=== PATIENT | female | born 1950 | race Caucasian/White ===

== ENCOUNTER → 2021-12-31 | Outpatient (CLI) | payer OTHER | LOC: LAB 17:25 → LAB SHORT 17:25 | DX: R30.0 Dysuria (principal) | CPT/HCPCS: 87086 ==

== ENCOUNTER → 2022-09-08 | Outpatient (CLI) | payer OTHER | END | disposition home or self-care (01) | LOC: PLD 08:10 → LAB SHORT 08:10 | DX: L60.2 Onychogryphosis (principal); B35.1 Tinea unguium | CPT/HCPCS: 88305; 88312 ==

== ENCOUNTER 2025-03-01 09:14 | Day surgery (SDC) | payer OTHER ==
[~2025-03-01] VITALS: Ht 162.6 cm; Wt 83.9 kg
[2025-03-01] MEDS ORDERED: CeFAZolin Sodium 2,000 MG VIAL ONE (09:31)
[2025-03-01] MEDS ORDERED: LISI5 PO (09:36)
[2025-03-01] MEDS ORDERED: LEVOTHYROXINE100 M10 PO (09:37)
[2025-03-01] MEDS ORDERED: Ropinirole HCl4 MG (09:37)
[2025-03-01] MEDS ORDERED: CARBIDOPA-LEVO1 EAC9 (09:37)
[2025-03-01] MEDS ORDERED: ASPIR 8181 M1 PO (09:38)
[2025-03-01] MEDS ORDERED: FentaNYL Citrate 50 MCG/ML 2 ML Injection ONE (10:21)
[2025-03-01] MEDS ORDERED: Midazolam HCl 1MG / ML 2ML Vial ONE (10:22)
[2025-03-01] MEDS ORDERED: Bupivacaine 0.5% HCl 5 MG/ML 30MLVIAL INJ ONE (10:33)
[2025-03-01] MEDS ORDERED: Ondansetron HCl 2 MG / ML 2ML Vial ONE (10:55)
[2025-03-01] MEDS ORDERED: Metoclopramide HCl 5MG / ML 2ML Vial ONE (10:55)
[2025-03-01 11:08] VITALS: BP 134/70
--- NOTE | 2025-03-01 11:45 | NUR ---
03/01/25 1145 Malika Muir PT TOLERATING FLUIDS AND SNACKS WELL. PT UP TO CHAIR, HER IS AT BEDSIDE. PT EDUCATION PROVIDED. ALL QUESTIONS ANSWERED, CONCERNS ADDRESSED. PT STATED THAT SHE'S NOT PAINFUL NOR NAUSEOUS. PT HASN'T TAKEN PARKIN[facility]'S MEDICATIONS YET, SO WENT TO THE CAR TO GRAB THEM FOR HER.
== END 2025-03-01 12:04 | disposition home or self-care (01) ==
LOC: ORSCSDS 09:14
PROVIDERS: Podiatrist
PROC: 0SNQ0ZZ Release Left Toe Phalangeal Joint, Open Approach (ICD-10-PCS; principal; 2025-03-01 10:30)
PROC: 0L8W0ZZ Division of Left Foot Tendon, Open Approach (ICD-10-PCS; principal; 2025-03-01 10:30)
DX: M20.42 Other hammer toe(s) (acquired), left foot (principal); L97.522 Non-pressure chronic ulcer of other part of left foot with fat layer exposed; M79.672 Pain in left foot; L84 Corns and callosities; G20.A1 Parkinson's disease without dyskinesia, without mention of fluctuations; I10 Essential (primary) hypertension; E66.9 Obesity, unspecified; Z68.31 Body mass index [BMI] 31.0-31.9, adult; Z79.82 Long term (current) use of aspirin; Z79.899 Other long term (current) drug therapy
CPT/HCPCS: A9270; J0690; J2003; J2250; J2405; J2704; J2765; J3010; J7120